=== PATIENT | female | born 1945 | race Caucasian/White ===

== ENCOUNTER 2017-09-29 05:40 | Day surgery (SDC) | payer MEDICARE, OTHER ==
[~2017-09-29] VITALS: Ht 152.4 cm; Wt 73.9 kg
--- NOTE | ~2017-09-29 | OR ---
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 PROCEDURE: Repair of left lumbar hernia with implantation of Prolene mesh (underlay technique). ANESTHESIA: General endotracheal; Eliseo Sandoval CRNA and local 20 mL of 0.25% Marcaine with epinephrine. INDICATION: This 72-year-old white woman is a patient of Dr. Elena, previously Dr. Schultz. In 2015, she underwent a fairly extensive evaluation for chronic diarrhea by Dr. Aftab Mtz in [employer]. Part of that evaluation included a CT scan of the abdomen showed a rather classic and typical lumbar hernia with herniation of colon and retroperitoneal fat. The patient has issues of diarrhea that are largely managed well by Questran currently. She is considered to have irritable bowel syndrome, underlying all this of the possibility of choleretic diarrhea considered probable in my opinion. She is markedly improved with Questran. Given her hernia, consideration has been made for repair. A CT scan performed in 2015, showed a rather classic Petit's hernia. I have recommended repair by open technique with implantation of Prolene mesh in the submuscular position as a most optimal way for repair of this type hernia. The risks of bleeding, infection, and recurrence were reviewed in detail. She understands and wished to proceed. FINDINGS: Rather classic Petiti's hernia was noted. Inferior border was the iliac crest, posterior border of the erector spinae, superoposterior border of the latissimus dorsi and the anterior border of the external oblique. A very distinct hernia defect was PATIENT NAME: PETER TERESA OPERATIVE REPORT DATE OF : 49 REPORT #: [id number] PHYSICIAN: ELISEO OTRRES MD PCP: CLAY ELENA MD REPORT IS CONFIDENTIAL AND NOT TO BE RELEASED WITHOUT AUTHORIZATION [facility] [address], [place] [address] Draft noted and the hernia sac was easily reduced. Implantation of Prolene mesh with at least 4 cm overlap in every area was undertaken providing optimal hernia repair. DESCRIPTION OF PROCEDURE: The patient was brought to the operating room, given a general endotracheal anesthetic. Preoperative antibiotic Ancef was given. Sequential compression device stockings were used and heparin subcutaneously administered. The positioning of the patient was in the lateral position with left side up. The break in the table was positioned optimally to allow for extension of the table providing good exposure to the left superior iliac crest. It is notable she had a previous posterior midline lumbar incision as well as a small incision over the left iliac crest likely for bone for obtaining bone graft for the lumbar operation. Sterile preparation was undertaken with chlorhexidine solution and the area was draped sterilely. A curvilinear incision was made over the area of the hernia defect cephalad to the iliac crest. Dissection was carried through the thick lumbar fat, ultimately achieving the fascial layer. With blunt dissection, the hernia sac was dissected free and the fascial confines ultimately well defined. The hernia defect was approximately the size of a silver dollar overall. The posterior border was erector spinae, the inferior border of the iliac crest. Anteriorly, the external oblique and superiorly the latissimus muscle. With meticulous care, the hernia sac was dissected free from the surrounding overlying muscular areas and allowed to replace into the retroperitoneal space. There was no incarceration of colon or other organ. The fascial clearance was at least 5 cm circumferentially. A segment of Prolene mesh was cut in a circular configuration and secured in an underlay technique with interrupted 0 Prolene sutures with Prolene pledgets. Care was taken to spread the mesh as far as possible to cover the defect widely. In particular, the mesh was placed in the inside of the iliac crest with suturing of the mesh to the periosteal layers of the iliac crest. Irrigation was undertaken and 20 mL of 0.25% Marcaine with epinephrine was injected locally. The lumbar fat was reapproximated with interrupted 2-0 Vicryl and skin closed with running subcuticular 3-0 Vicryl. Steri-Strips were applied as was a Mepilex silver sponge dressing and an OpSite. The patient was ultimately extubated and transferred to recovery room in good condition having suffered no complication. Sponge, needle, and instrument counts reported as correct x3. Eliseo Torres MD PATIENT NAME: PETER TERESA OPERATIVE REPORT DATE OF : 49 REPORT #: [id number] PHYSICIAN: ELISEO TORRES MD PCP: CLAY ELENA MD REPORT IS CONFIDENTIAL AND NOT TO BE RELEASED WITHOUT AUTHORIZATION [address] [address] Draft RODNEY/CHONG /[id number] cc: MD Angel Brooks MD James Harri, MD Copies: Isaiah SCHULTZ MD, LOUIS SAMUELS MD HARRI, JAMES MD ~ PATIENT NAME: PETER TERESA OPERATIVE REPORT DATE OF : 49 REPORT #: [id number] PHYSICIAN: ELISEO TORRES MD PCP: CLAY ELENA MD REPORT IS CONFIDENTIAL AND NOT TO BE RELEASED WITHOUT AUTHORIZATION
[~2017-09-29 05:40] MED LIST: CALTRATE 600 +1 EAC1 PO; CENTRUM SILVER1 EAC3 PO; CHOLESTYRAMINE P4 GM PO; DICYCLOMINE HCL10 MG PO; GABAPENTIN600 MG PO; LEFLUNOMIDE10 MG PO; LIPITOR40 MG PO; OMEPRAZOLE20 MG PO; PAROXETINE HCL20 MG PO; POTASSIUM CHLO20 ME2 PO; VITAMIN D34000 UNIT PO
--- NOTE | 2017-09-29 09:57 | NUR ---
09/29/17 0957 Huma Cisneros 0949 PATIENT ARRIVES TO PACU UNRESPONSIVE TO PAINFUL STIMULI, MASK AT [address].
[2017-09-29] MEDS ORDERED: IBUPROFEN600 MG PO (10:11)
[2017-09-29] MEDS ORDERED: MAPAP325 MG PO (10:12)
[2017-09-29] MEDS ORDERED: OXYCODON-ACETA1 EAC2 PO (10:12)
--- NOTE | 2017-09-29 10:54 | NUR ---
PATIENT ARRIVED BACK TO DAY SURGERY. PATIENT IS SLEEPING SOUNDLY, GIVEN KETAMINE FOR PAIN, PER ANESTHESIA. O2 SAYS ARE 94% ON ROOM AIR, VITALS ARE STABLE. LEFT LUMBAR AREA DRESSING IS INTACT WITH MEPLIX AND OPSITE WITH NO DRAINAGE NOTED. SCD'S ARE ON. LEFT HAND IV IS INTACT, PATIENT GIVEN POST OP DOSE OF ANCEF 2G.
--- NOTE | 2017-09-29 11:13 | NUR ---
PT IS FRESTING IN BED, ALERT AND SUPPORTED BY HER DAUGHTER. SHE SEEMED INFORMED AND READY-PT DID REQUEST PRAYER. WILL FOLLOW NEEDED
--- NOTE | 2017-09-29 11:37 | NUR ---
PATIENT IS RESTING COMFORTABLY IN BED, DENIES PAIN AT THIS TIME. LUMBAR LLQ DRESSING IS CDI. IV IS SALINE LOCKED. ICE CHIPS AT BEDSIDE AND PATIENT HAS COOL COMPRESS ON FORHEAD. DAUGHTER IN ROOM WITH PATIENT.
--- NOTE | 2017-09-29 12:39 | NUR ---
PATIENT UP TO VOID, HAVING SIGNIFICANT DIZZINESS AND USED THE COMMODE TO VOID 900ML. PATIENT EATING CRACKERS AND TOLERATING PO FLUIDS, HAD PO IBUPROFEN FOR 2/10 LEFT BACK PAIN AND 7/10 LEFT EYE PAIN. PATIENT REPORTS LEFT EYE IRRITATION, NOT ABLE TO VISUALIZE ANYTHING IN PATIENT'S EYE.
--- NOTE | 2017-09-29 12:54 | NUR ---
CALL TO [facility] GOMES THAT PATIENT HAS LEFT EYE IRRITATION. RECOMMEND PATCH, EYE DROPS AND POSSIBLE VISIT TO EYE DOCTOR IF CONTINUES TOMORROW.
--- NOTE | 2017-09-29 13:51 | NUR ---
PATIENT DISCHARGED TO HOME, GIVEN WHEELCHAIR RIDE TO FRONT DOOR, PLACED SELF IN CAR FOR DAUGHTER TO TRANSPORT HOME.
== END 2017-09-29 13:40 | disposition home or self-care (01) ==
LOC: DS 05:40
PROVIDERS: Surgery
PROC: 0WUF0JZ Supplement Abdominal Wall with Synthetic Substitute, Open Approach (ICD-10-PCS; principal; 2017-09-29 06:45)
DX: K45.8 Other specified abdominal hernia without obstruction or gangrene (principal); K52.9 Noninfective gastroenteritis and colitis, unspecified; K21.9 Gastro-esophageal reflux disease without esophagitis; Z88.5 Allergy status to narcotic agent; Z88.2 Allergy status to sulfonamides; Z85.3 Personal history of malignant neoplasm of breast; Z86.14 Personal history of Methicillin resistant Staphylococcus aureus infection; Z98.890 Other specified postprocedural states; Z79.899 Other long term (current) drug therapy
CPT/HCPCS: C1781; J0330; J0690; J1100; J1644; J1885; J2250; J2405; J2704; J2765; J3010; J7120

== ENCOUNTER 2018-06-23 00:22 | Emergency (ER) | payer MEDICARE, OTHER ==
[~2018-06-23] VITALS: Ht 152.4 cm; Wt 69.4 kg
--- OUTSIDE RECORDS SUMMARY | ~2018-06-23 | XMS | Encounter Summary ---
Demographics + + + | Address | [address] | | | [place] [address] | + + + | Home Phone | | + + + | Preferred Language | Unknown | + + + | Marital Status | | + + + | Cheondoism Affiliation | 1077 | + + + | Race | Unknown | + + + | Ethnic Group | Unknown | + + + Author + + + | Author | [facility] | | | and [place] | + + + | Organization | [facility] | | | and [place] | + + + | Address | Unknown | + + + | Phone | Unavailable | + + + Support + + + + + | Name | Relationship | Address | Phone | + + + + + | Angie Sellers | ECON | [address] | | | | | [place], | | | | | [place] [address] | | + + + + + | Bud Lo | ECON | [address] | | | | | [place], | | | | | [place] [address] | | + + + + + | Angie Sellers | ECON | Unknown | | + + + + + Care Team Providers + +------+ + | Care Info Print Press Operator Name | Role | Phone | + +------+ + | Tammi Elena MD | PCP | | + +------+ + Reason for Visit + + + | Reason | Comments | + + + | Medication Refill | | + + + Encounter Details +--------+--------+ + + + | Date | Type | Department | Care Team | Description | +--------+--------+ + + + | 05/31/ | Refill | [facility] | Aftab Lowe MD | Medication Refill | | 2019 | | GASTROENTEROLOGY | [address], [place] | | | | | [address] [place] | [address] [place] | | | | | [address] [place], [place] | [address] | | | | | [address] | | | | | | [phone] | | | +--------+--------+ + + + Social History + +-------+ +--------+------+ | Tobacco Use | Types | Packs/Day | Years | Date | | | | | Used | | + +-------+ +--------+------+ | Never Smoker | | | | | + +-------+ +--------+------+ + +---+---+---+ | Smokeless Tobacco: | | | | | Never Used | | | | + +---+---+---+ + + +---------+ + | Alcohol Use | Drinks/We | oz/Week | Comments | | | ek | | | + + +---------+ + | Yes | 0 | 0.0 | Socially 1-2 drinks a month or less | | | Standard | | | | | drinks or | | | | | | | | | | equivalen | | | | | t | | | + + +---------+ + + + + | Sex Assigned at | Date Recorded | | | | + + + | Not on file | | + + + + + + + | Job Start Date | Occupation | Industry | + + + + | Not on file | Not on file | Not on file | + + + + + + + + | Travel History | Travel Start | Travel End | + + + + + + | No recent travel history available. | + + documented as of this encounter Plan of Treatment +--------+ + + + + | Date | Type | Specialty | Care Team | Description | +--------+ + + + + | 06/12/ | Appointment | Oncology | Aftab Chun | | | 2019 | | | MD Bill [address] | | | | | | [address] | | | | | | [place] [address] | | | | | | [phone] | | | | | | | | +--------+ + + + + documented as of this encounter Visit Diagnoses Not on filedocumented in this encounter"
--- OUTSIDE RECORDS SUMMARY | ~2018-06-23 | XMS | Clinical Summary ---
Demographics + + + | Address | [address] | | | [place] [address] | + + + | Home Phone | | + + + | Preferred Language | Unknown | + + + | Marital Status | | + + + | Latter Day Affiliation | 1077 | + + + | Race | Unknown | + + + | Ethnic Group | Unknown | + + + Author + + + | Author | [facility] | | | and [place] | + + + | Organization | [facility] | | | and [place] [...] [place], | | | | | [place] [address] | | + + + + + | Bud Lo | ECON | [address] | | | | | [place], | | | | | [place] [address] | | + + + + + | Angie Sellers | ECON | Unknown | | + + + + + Care Team Providers + +------+ + | Care Automation Qa Tester Name | Role | Phone | + +------+ + | Tammi Elena MD | PP | | + +------+ + Allergies + + + + + + | Active Allergy | Reactions | Severity | Noted | Comments | | | | | Date | | + + + + + + | Bee Venom | Swelling | Medium | 08/05/19 | Local reaction | | | | | 13 | | + + + + + + | Codeine Sulfate | Hives, Rash | Low | | | + + + + + + | Morphine Sulfate | Other (See Comments) | Low | | hallucination | + + + + + + | Sulfa Antibiotics | Hives, Rash | Low | | | + + + + + + Medications + + + +---------+------+------+-------+ | Medication | Sig | Dispensed | Refills | Star | End | Statu | | | | | | t | Date | s | | | | | | Date | | | + + + +---------+------+------+-------+ | potassium chloride | Take 20 mEq by mouth | | 0 | 09/1 | | Activ | | (KLOR-CON) 20 MEQ | 2 times daily. | | | 3/20 | | e | | packet | | | | 12 | | | + + + +---------+------+------+-------+ | cholestyramine | Take 1 packet by | 240 g | 12 | 07/0 | | Activ | | (QUESTRAN) 4 GM/DOSE | mouth 2 times daily. | | | 04/07 | | e | | powder | | | | 13 | | | + + + +---------+------+------+-------+ | atorvaSTATin | Take 40 mg by mouth | | 0 | 10/17 | | Activ | | (LIPITOR) 40 mg | nightly. | | | 05/05 | | e | | tablet | | | | 12 | | | + + + +---------+------+------+-------+ | Multiple | Take 1 tablet by | | 0 | 10/17 | | Activ | | Vitamins-Minerals | mouth Daily. | | | 05/05 | | e | | (CENTRUM SILVER) | | | | 12 | | | | TABS | | | | | | | + + + +---------+------+------+-------+ | gabapentin | Take 500 mg by mouth | | 0 | | | Activ | | (NEURONTIN) 100 mg | nightly. Pt states | | | | | e | | capsule | she takes 500mg | | | | | | | | daily po | | | | | | + + + +---------+------+------+-------+ | omeprazole | Take 1 capsule by | 90 | 2 | 04/1 | | Activ | | (PRILOSEC) 20 mg | mouth every morning | capsule | | 6/20 | | e | | capsule | (before breakfast). | | | 15 | | | + + + +---------+------+------+-------+ | calcium-vitamin D | Take 600 mg by mouth | | 0 | | | Activ | | 600-400 MG-UNIT TABS | Daily. | | | | | e | + + + +---------+------+------+-------+ | PARoxetine (PAXIL) | Take 20 mg by mouth | | 0 | | | Activ | | 40 MG tablet | every morning. | | | | | e | + + + +---------+------+------+-------+ | Cholecalciferol | Take 4,000 Units by | | 0 | | | Activ | | (VITAMIN D-3) 4000 | mouth Daily. | | | | | e | | units CAPS | | | | | | | + + + +---------+------+------+-------+ | famotidine | Take 40 mg by mouth | | 0 | | | Activ | | (PEPCID) 40 MG | Daily. | | | | | e | | tablet | | | | | | | + + + +---------+------+------+-------+ | dicyclomine | take 1 capsule by | 60 | 1 | 04/1 | | Activ | | (BENTYL) 10 mg | mouth four times a | capsule | | 8/20 | | e | | capsule | day if needed for | | | 19 | | | | | abdominal pain | | | | | | | | cramping and | | | | | | | | diarrhea | | | | | | + + + +---------+------+------+-------+ | traZODone | Take 1 tablet by | | 0 | 04/0 | | Activ | | (DESYREL) 50 mg | mouth nightly as | | | 8/20 | | e | | tablet | needed. | | | 19 | | | + + + +---------+------+------+-------+ | hydroxychloroquine | Take 400 mg by mouth | | 0 | | 04/2 | Disco | | (PLAQUENIL) 200 mg | Daily. Take po | | | | 6/20 | ntinu | | tablet | twice a day | | | | 19 | ed | + + + +---------+------+------+-------+ | leflunomide | Take 10 mg by mouth | | 0 | | 04/2 | Disco | | (ARAVA) 10 mg tablet | Daily. | | | | 6/20 | ntinu | | | | | | | 19 | ed | + + + +---------+------+------+-------+ | dicyclomine | take 1 capsule by | 60 | 1 | 11/0 | 04/1 | Disco | | (BENTYL) 10 mg | mouth four times a | capsule | | 7/20 | 5/20 | ntinu | | capsule | day if needed for | | | 18 | 19 | ed | | | ABDOMINAL PAIN | | | | | | | | CRAMPING AND | | | | | | | | DIARRHEA | | | | | | + + + +---------+------+------+-------+ Active Problems + + + | Problem | Noted Date | + + + | High risk medication use | 12/09/2016 | + + + + + | Overview: Last Assessment & Plan: Update labs today and | | continue to monitor closely while on DMARD and/or biologic | | medication. Counseled regarding medication compliance as well as | | potential toxicities with medications such as cytopenias, liver | | abnormalities and risks for infection, and the need for routine | | blood work monitoring. | + + + + + | Malignant neoplasm of female breast | 12/28/2015 | + + + | Other ferry terminal agent (current) drug therapy | 06/19/2015 | + + + | Osteoarthritis of hand | 06/19/2015 | + + + | Change in bowel habit | 06/05/2015 | + + + | GERD (gastroesophageal reflux disease) | 05/24/2015 | + + + | Fecal incontinence | 05/24/2015 | + + + | Rheumatoid arthritis involving multiple joints | 12/18/2014 | + + + | Lumbar spondylosis | | + + + + + | Overview: PLRU [id number] Decision | + + + +---+ | DIARRHEA | | + +---+ | SCOLIOSIS, LUMBAR SPINE | | + +---+ Encounters +--------+ + + + + | Date | Type | Specialty | Care Team | Description | +--------+ + + + + | 06/11/ | Hospital | | Aftab Chun | Malignant neoplasm | | 2019 | Encounter | | MD Bill | of female breast, | | | | | | unspecified estrogen | | | | | | receptor status, | | | | | | unspecified | | | | | | laterality, | | | | | | unspecified site of | | | | | | breast (HCC) | | | | | | (Primary Dx); Lumbar | | | | | | spondylosis; | | | | | | Rheumatoid arthritis | | | | | | involving multiple | | | | | | joints (HCC); Other | | | | | | ferry terminal agent (current) | | | | | | drug therapy; High | | | | | | risk medication use | +--------+ + + + + | 05/31/ | Refill | | Aftab Lowe MD | Medication Refill | | 2019 | | | | | +--------+ + + + + from Last 3 Months Family History + + +------+ + | Medical History | Relation | Name | Comments | + + +------+ + | Diabetes | Brother | | | + + +------+ + | Heart disease | Brother | | DC | + + +------+ + | Cancer | Father | | KIDNEY | + + +------+ + | Stroke | Father | | | + + +------+ + | Cancer | Mother | | LUNG | + + +------+ + | Diabetes | Mother | | | + + +------+ + | Heart disease | Mother | | | + + +------+ + + +------+ + + | Relation | Name | Status | Comments | + +------+ + + | Brother | | | | + +------+ + + | Father | | | | + +------+ + + | Mother | | | Lung cancer, CAD, Smoker, Leukemia | | | | (Age | | | | | 70) | | + +------+ + + Social History + +-------+ +--------+------+ [...] recent travel history available. | + + Last Filed Vital Signs + + + + | Vital Sign | Reading | Time Taken | + + + + | Blood Pressure | 126/71 | 06/11/2018 1117 PDT | + + + + | Pulse | 73 | 06/11/20181116 PDT | + + + + | Temperature | 36.9 C (98.4 F) | 06/11/20181116 PDT | + + + + | Respiratory Rate | 18 | 06/11/20181116 PDT | + + + + | Oxygen Saturation | 97% | 06/11/20181116 PDT | + + + + | Inhaled Oxygen | - | - | | Concentration | | | + + + + | Weight | 72.9 kg (160 lb 11.5 | 06/11/20181116 PDT | | | oz) | | + + + + | Height | 152.4 cm (5') | 05/05/2017 1610 PDT | + + + + | Body Mass Index | 31.39 | 05/05/2017 1610 PDT | + + + + Plan of Treatment +--------+ + + + + | Date | Type | Specialty | Care Team | Description | +--------+ + + + + | 06/12/ | Appointment | | Aftab Chun | | | 2019 | | | MD [facility] [address] | | | | | | [address] | | | | | | [place] [address] | | | | | | [phone] | | | | | | | | +--------+ + + + + + + + + + | Health Maintenance | Due Date | Last Done | Comments | + + + + + | Hepatitis C | | | | | Screening | 8 | | | + + + + + | Breast Cancer | | | | | Screening (Ages | 8 | | | | 50-74) | | | | + + + + + | Vaccine: Zoster (1 | | | | | of 2) | 8 | | | + + + + + | Adult Annual | | | | | Wellness Visit | 5 | | | + + + + + | Vaccine: | | 11/23/2017 | | | Pneumococcal 65+ | 8 | | | | High/Highest Risk (2 | | | | | of 2 - PPSV23) | | | | + + + + + | Vaccine: | | 07/05/2011 | | | Dtap/Tdap/Td (2 - | 2 | | | | Td) | | | | + + + + + | Colorectal Cancer | | 06/06/2015, 01/06/2008, | | | Screening | 6 | 12/29/2007 | | | (Colonoscopy) | | | | + + + + + | Vaccine: Influenza | Completed | 11/04/2017, 10/28/2016, | | | | | 10/24/2015, Additional history | | | | | exists | | + + + + + Procedures + +--------+ + + + | Procedure Name | Priori | Date/Time | Associated Diagnosis | Comments | | | ty | | | | + +--------+ + + + | COMPREHENSIVE | STAT | 06/11/2018 | Lumbar spondylosis | Results for this | | METABOLIC PANEL | | 10:26 PDT | Rheumatoid | procedure are in the | | | | | arthritis involving | results section. | | | | | multiple joints | | | | | | (HCC) Other long | | | | | | term (current) drug | | | | | | therapy Malignant | | | | | | neoplasm of female | | | | | | breast, unspecified | | | | | | estrogen receptor | | | | | | status, unspecified | | | | | | laterality, | | | | | | unspecified site of | | | | | | breast (HCC) High | | | | | | risk medication use | | + +--------+ + + + | CBC WITH | STAT | 06/11/2018 | Lumbar spondylosis | Results for this | | DIFFERENTIAL | | 10:26 PDT | Rheumatoid | procedure are in the | | | | | arthritis involving | results section. | | | | | multiple joints | | | | | | (HCC) Other long | | | | | | term (current) drug | | | | | | therapy Malignant | | | | | | neoplasm of female | | | | | | breast, unspecified | | | | | | estrogen receptor | | | | | | status, unspecified | | | | | | laterality, | | | | | | unspecified site of | | | | | | breast (HCC) High | | | | | | risk medication use | | + +--------+ + + + from Last 3 Months Results CBC with Differential (06/11/2018 10:26 PDT) + +-------+ + + + | Component | Value | Ref Range | Performed | Pathologist | | | | | At | Signature | + +-------+ + + + | WBC | 5.8 | 4.0 - 11.0 K/uL | [facility] | | | | | | [facility] | | | | | | [facility] | | | | | [facility] - | | | | | | LABORATORY | | + +-------+ + + + | RBC | 4.92 | 3.70 - 5.20 | [facility] | | | | | M/uL | [facility] | | | | | | [facility] | | | | | | [facility] - | | | | | | LABORATORY | | + +-------+ + + + | Hemoglobin | 15.0 | 11.5 - 16.0 | [facility] | | | | | g/dL | [facility] | | | | | | [facility] | | | | | | [facility] - | | | | | | LABORATORY | | + +-------+ + + + | Hematocrit | 43.6 | 34.0 - 47.0 % | [facility] | | | | | | [facility] | | | | | | [facility] | | | | | | [facility] - | | | | | | LAB[facility]ATORY | | + +-------+ + + + | MCV | 88.6 | 83.0 - 101.0 fL | [facility] | | | | | | [facility] | | [facility] | | | [facility] | | | | | [facility] - | | | | | | LAB[facility]ATORY | | + +-------+ + + + | MCH | 30.5 | 28.0 - 35.0 pg | [facility] | | | | | | [facility] | | | | | | [facility] | | | | | | [facility] - | | | | | | LAB[facility]ATORY | | + +-------+ + + + | MCHC | 34.4 | 32.0 - 36.0 | [facility] | | | | | g/dL | [facility] | | | | | | [facility] | | | | | | [facility] - | | | | | | LABORATORY | | + +-------+ + + + | RDW-CV | 13.2 | <15.0 % | [facility] | | | | | | [facility] | | | | | | [facility] | | | | | | [facility] - | | | | | | LAB[facility]ATORY | | + +-------+ + + + | RDW-SD | 42.5 | 35.1 - 46.3 fL | [facility] | | | | | | [facility] | | | | | | [facility] | | | | | | [facility] - | | | | | | LAB[facility]ATORY | | + +-------+ + + + | Platelet | 238 | 140 - 440 K/uL | [facility] | | | Count | | | [facility] | | | | | | [facility] | | | | | | [facility] - | | | | | | LAB[facility]ATORY | | + +-------+ + + + | MPV | 9.6 | 6.5 - 12.4 fL | [facility] | | | | | | [facility] | | | | | | [facility] | | | | | [facility] - | | | | | | LAB[facility]ATORY | | + +-------+ + + + | % | 60.0 | 45.0 - 82.0 % | [facility] | | | Neutrophils | | | [facility] | | | | | | [facility] | | | | | | [facility] - | | | | | | LABORATORY | | + +-------+ + + + | % | 26.1 | 20.0 - 45.0 % | [facility] | | | Lymphocytes | | | [facility] | | | | | | [facility] | | | | | | [facility] - | | | | | | LAB[facility]ATORY | | + +-------+ + + + | % Monocytes | 8.7 | 4.0 - 12.0 % | [facility] | | | | | | [facility] | | | | | | [facility] | | | | | | [facility] - | | | | | | LAB[facility]ATORY | | + +-------+ + + + | % | 4.0 | 0.0 - 5.0 % | [facility] | | | Eosinophils | | | [facility] | | | | | | [facility] | | | | | | [facility] - | | | | | | LABORATORY | | + +-------+ + + + | % Basophils | 1.0 | 0.0 - 1.0 % | [facility] | | | | | | [facility] | | | | | | [facility] | | | | | | [facility] - | | | | | | LAB[facility]ATORY | | + +-------+ + + + | % Immature | 0.2 | 0.0 - 0.4 % | [facility] | | | Granulocyte | | | [facility] | | | s | | | [facility]ICAL | | | | | | CENTER - | | | | | | LABORATORY | | + +-------+ + + + | Absolute | 3.47 | 1.80 - 8.50 | [facility] | | | Neutrophils | | K/uL | [facility] | | | | | | [facility] | | | | | | [facility] - | | | | | | LAB[facility]ATORY | | + +-------+ + + + | Absolute | 1.51 | 0.60 - 3.20 | [facility] | | | Lymphocytes | | K/uL | [facility] | | | | | | [facility] | | | | | | [facility] - | | | | | | LAB[facility]ATORY | | + +-------+ + + + | Absolute | 0.50 | 0.00 - 1.00 | [facility] | | | Monocytes | | K/uL | [facility] | | | | | | [facility] | | | | | | [facility] - | | | | | | LAB[facility]ATORY | | + +-------+ + + + | Absolute | 0.23 | 0.00 - 0.40 | [facility] | | | Eosinophils | | K/uL | [facility] | | | | | | [facility] | | | | | | [facility] - | | | | | | LABORATORY | | + +-------+ + + + | Absolute | 0.06 | 0.00 - 0.10 | [facility] | | | Basophils | | K/uL | [facility] | | | | | | [facility] | | | | | | [facility] - | | | | | | LABORATORY | | + +-------+ + + + | Absolute | 0.01 | 0.00 - 0.03 | [facility] | | | Immature | | K/uL | [facility] | | | Granulocyte | | | MEDICAL | | | s | | | CENTER - | | | | | | LABORATORY | | + +-------+ + + + | % nRBC | 0 | 0 - 2 per 100 | [facility] | | | | | WBCs | [facility] | | | | | | [facility] | | | | | | [facility] - | | | | | | LABORATORY | | + +-------+ + + + | Absolute | 0.00 | 0.00 - 0.01 | [facility] | | | nRBC | | K/uL | [facility] | | | | | | [facility] | | | | | | [facility] - | | | | | | LABORATORY | | + +-------+ + + + + + | Specimen | + + | Blood | + + + + + + + | Performing | Address | City/State/Zipcode | Phone Number | | Organization | | | | + + + + + | [facility] | [address] | [place] | [phone] | | [facility] | | [address] | | | - LABORATORY | | | | + + + + + Comprehensive Metabolic Panel (06/11/2018 10:26 PDT) + + + + + + | Component | Value | Ref Range | Performed | Pathologist | | | | | At | Signature | + + + + + + | Na | 141 | 136 - 145 | [facility] | | | | | mmol/L | [facility] | | | | | | [facility] | | | | | | [facility] - | | | | | | LABORATORY | | + + + + + + | K | 3.8 | 3.4 - 5.1 | [facility] | | | | | mmol/L | [facility] | | | | | | [facility] | | | | | | C[facility] - | | | | | | LABORATORY | | + + + + + + | Cl | 108 (H) | 98 - 107 mmol/L | [facility] | | | | | | [facility] | | | | | | [facility] | | | | | | CENTER - | | | | | | LABORATORY | | + + + + + + | CO2 | 27 | 20 - 31 mmol/L | [facility] | | | | | | [facility] | | | | | | [facility] | | | | | | [facility] - | | | | | | LABORATORY | | + + + + + + | Anion Gap | 6 | 3 - 16 mmol/L | [facility] | | | | | | [facility] | | | | | | [facility] | | | | | | CENTER - | | | | | | LABORATORY | | + + + + + + | Glucose | 92 | 60 - 106 mg/dL | [facility] | | | | | | [facility] | | | | | | [facility] | | | | | | [facility] - | | | | | | LABORATORY | | + + + + + + | BUN | 16 | 9 - 23 mg/dL | [facility] | | | | | | [facility] | | | | | | [facility] | | | | | | C[facility] - | | | | | | LABORATORY | | + + + + + + | Creatinine | 0.79 | 0.55 - 1.02 | [facility] | | | | | mg/dL | [facility] | | | | | | MEDICAL | | | | | | CENTER - | | | | | | LABORATORY | | + + + + + + | eGFR if not | >60Comment: GLOMERULAR | >=60 | [facility] | | | | FILTRATION | mL/min/1.73m2 | [facility] | | | HONDURAN | RATE,ESTIMATED mL/min | | MEDICAL | | | | /1.83v1Mlmv than 60 | | CENTER - | | | | Chronic kidney | | LABORATORY | | | | disease,if found over a | | | | | | 3-month period.Less than | | | | | | 15 Kidney | | | | | | failureFor | | | | | | Americans,multiply the | | | | | | calculated GFR by 1.21. | | | | | | | | | | + + + + + + | Ca | 9.8 | 8.7 - 10.4 | [facility] | | | | | mg/dL | [facility] | | | | | | MEDICAL | | | | | | CENTER - | | | | | | LABORATORY | | + + + + + + | Albumin | 4.6 | 3.2 - 4.8 g/dL | [facility] | | | | | | [facility] | | | | | | [facility] | | | | | | CENTER - | | | | | | LABORATORY | | + + + + + + | Bilirubin | 0.8 | 0.3 - 1.2 mg/dL | [facility] | | | Total | | | [facility] | | | | | | MEDICAL | | | | | | CENTER - | | | | | | LABORATORY | | + + + + + + | Total | 6.5 | 5.7 - 8.2 g/dL | [facility] | | | Protein | | | [facility] | | | | | | MEDICAL | | | | | | CENTER - | | | | | | LABORATORY | | + + + + + + | AST | 19 | 0 - 34 U/L | [facility] | | | | | | [facility] | | [facility] | | | MED[facility] | | | | | | CENTER - | | | | | | LABORATORY | | + + + + + + | ALT | 12 | 10 - 49 U/L | [facility] | | | | | | [facility] | | | | | | MED[facility] | | | | | | CENTER - | | | | | | LABORATORY | | + + + + + + | Alkaline | 148 (H) | 46 - 116 U/L | [facility] | | | Phosphatase | | | [facility] | | | | | | MEDICAL | | | | | | CENTER - | | | | | | LABORATORY | | + + + + + + | Globulin | 1.9 (L) | 2.1 - 3.8 g/dL | [facility] | | | | | | [facility] | | | | | | MEDICAL | | | | | | CENTER - | | | | | | LABORATORY | | + + + + + + | Albumin/Tea | 2.4 (H) | 0.8 - 1.9 | [facility] | | | bulin Ratio | | | [facility] | | | | | | MEDICAL | | | | | | CENTER - | | | | | | LABORATORY | | + + + + + + | BUN/Creatin | 20.3 | | [facility] | | | ine Ratio | | | [facility] | | | | | | MEDICAL | | | | | | CENTER - | | | | | | LABORATORY | | + + + + + + + + | Specimen | + + | Blood | + + + + + + + | Performing | Address | City/State/Zipcode | Phone Number | | Organization | | | | + + + + + | [facility] | [address] | [place] | [phone] | | [facility] | | [address] | | | - LABORATORY | | | | + + + + + from Last 3 Months Insurance + +--------+ +--------+ +---------+--------+ | Payer | Benefi | Subscriber | Effect | Phone | Address | Type | | | t Plan | ID | lashanda | | | | | | / | | Dates | | | | | | Group | | | | | | + +--------+ +--------+ +---------+--------+ | MEDICARE | MEDICA | [id number] | 02/16/19 | [phone] | | Medica | | | RE | | 13-Pre | 5 | | re | | | PART A | | sent | | | | | | AND B | | | | | | + +--------+ +--------+ +---------+--------+ | HUMANA | HU[employer]NA | [id number] | 02/16/19 | [phone] | | Indemn | | | MDCR | | 13-Pre | 4 | | ity | | | SUPPL | | sent | | | | + +--------+ +--------+ +---------+--------+ + +--------+ +--------+ + + | Guarantor Name | Accoun | Relation to | Date | Phone | Billing Address | | | t Type | Patient | of | | | | | | | | | | + +--------+ +--------+ + + | Aubrie Lo | Person | Self | [birth year] | [address] | | | al/Fam | | 1946 | [phone] | [place] [id number] | | | derick | | | 4 (Home) | | + +--------+ +--------+ + + Advance Directives Patient has advance care planning documents on file. For more information, please contact:[facility] [place] [address]"
--- OUTSIDE RECORDS SUMMARY | ~2018-06-23 | XMS | Clinical Summary ---
Demographics + + + | Address | [address] | | | [place] [address] | + + + | Home Phone | | + + + | Preferred Language | Unknown | + + + | Marital Status | | + + + | Scientology Affiliation | Unknown | + + + | Race | Unknown | + + + | Ethnic Group | Unknown | + + + Author + + + | Author | [facility] | + + + | Organization | [facility] | + + + | Address | Unknown | + + + | Phone | Unavailable | + + + Support + + +---------+ + | Name | Relationship | Address | Phone | + + +---------+ + | Angie Sellers | ECON | Unknown | | + + +---------+ + Care Team Providers + +------+ + | Care Coach Name | Role | Phone | + +------+ + | Tammi Elena MD | PP | | + +------+ + Allergies + + + + + + | Active Allergy | Reactions | Severity | Noted | Comments | | | | | Date | | + + + + + + | Codeine | Itching | Medium | 12/19/19 | | | | | | 15 | | + + + + + + | Morphine | Other (See Comments) | Medium | 08/13/19 | [facility] | | | | | 19 | talking to her | + + + + + + | Sulfa Antibiotics | Hives | High | 12/19/19 | | | | | | 15 | | + + + + + + Current Medications + + +--------+---------+------+------+-------+ | Prescription | Sig. | Disp. | Refills | Star | End | Statu | | | | | | t | Date | s | | | | | | Date | | | + + +--------+---------+------+------+-------+ | Multiple | Take 1 tablet by | | | | | Activ | | Vitamins-Minerals | mouth daily. | | | | | e | | (MULTIVITAMIN WITH | | | | | | | | MINERALS) tablet | | | | | | | + + +--------+---------+------+------+-------+ | Nutritional | Take by mouth. | | | | | Activ | | Supplements (VITAMIN | | | | | | e | | D MAINTENANCE PO) | | | | | | | + + +--------+---------+------+------+-------+ | omeprazole | Take 20 mg by mouth | | | | | Activ | | (PRILOSEC) 20 MG | every morning before | | | | | e | | capsule | breakfast. | | | | | | + + +--------+---------+------+------+-------+ | PARoxetine (PAXIL) | Take 40 mg by mouth | | | 10/17 | | Activ | | 40 MG tablet | daily. | | | 10/05 | | e | | | | | | 15 | | | + + +--------+---------+------+------+-------+ | vitamin D2, | Take 50,000 Units by | | | | | Activ | | ergocalciferol, | mouth once a week. | | | | | e | | 12596 UNITS capsule | | | | | | | + + +--------+---------+------+------+-------+ | Calcium Carbonate | Take by mouth. | | | | | Activ | | (CALTRATE 600 PO) | | | | | | e | + + +--------+---------+------+------+-------+ | atorvastatin | | | | 05/0 | | Activ | | (LIPITOR) 40 MG | | | | 9/20 | | e | | tablet | | | | 17 | | | + + +--------+---------+------+------+-------+ | gabapentin | | | | 05/1 | | Activ | | (NEURONTIN) 100 MG | | | | 1/20 | | e | | capsule | | | | 17 | | | + + +--------+---------+------+------+-------+ | cholestyramine | | | | 01/2 | | Activ | | (QUESTRAN) 4 g | | | | 9/20 | | e | | packet | | | | 18 | | | + + +--------+---------+------+------+-------+ | leflunomide | Take 1 tablet by | 45 | 0 | 09/0 | | Activ | | (ARAVA) 10 MG | mouth every other | tablet | | / | | e | | tabletIndications: | day. | | | 18 | | | | Rheumatoid arthritis | | | | | | | | of multiple sites | | | | | | | | with negative | | | | | | | | rheumatoid factor | | | | | | | | (HCC), High risk | | | | | | | | medication use | | | | | | | + + +--------+---------+------+------+-------+ | hydroxychloroquine | TAKE 1 TABLET EVERY | 90 | 0 | 11/2 | | Activ | | (PLAQUENIL) 200 MG | DAY | tablet | | 10/05 | | e | | tablet | | | | 18 | | | + + +--------+---------+------+------+-------+ Active Problems + + + | Problem | Noted Date | + + + | Lumbar spondylosis | 10/23/2017 | + + + + + | Overview: Overview: | | ERICKA [id number] Decision | + + + + + | Lumbar spine scoliosis | 10/23/2017 | + + + | Trochanteric bursitis of left hip | 10/23/2017 | + + + + + | Last Assessment & Plan: Active discussed conservative | | treatment including stretching and strengthening. Educationally | | information provided. | + + + + + | Chronic diarrhea | 09/29/2017 | + + + | Status post lumbar spine operation | 09/29/2017 | + + + | Lumbar hernia | 09/29/2017 | + + + | High risk medication use | 12/09/2016 | + + + + + | Last Assessment & Plan: Basic labs Monitored (CBC,CMP and | | ESR): OrderedLabs routinely ordered due to high risk medication | | use- Monitored for cytopenias, liver toxicity, renal dysfunction | | and disease activity. Eye exam satisfactory will call for recent | | examThe major posible side effect of Plaquenil is retinal | | toxicity, which is very rare at the dose we use (which is less | | than 5 mg/kg per day). This side effect happens 1 in 5000 usually | | after 5 years of use. To detect this possibility they will need | | to be seen by an supervisor treating and pumping at least once a year. | + + + + + | Malignant neoplasm of female breast (HCC) | 12/28/2015 | + + + + + | Last Assessment & Plan: Diagnosed in 1999 | + + + + + | Primary osteoarthritis of both hands | 06/19/2015 | + + + + + | Last Assessment & Plan: Patient is taking OTC analgesics PRN | | for pain. Discussed the utility of omega fatty acid and | | glucosamine/chondroitin supplements, weight loss and exercise. | + + + + + | GERD (gastroesophageal reflux disease) | 05/24/2015 | + + + | Rheumatoid arthritis of multiple sites with negative rheumatoid | 12/18/2014 | | factor (HCC) | | + + + + + | Last Assessment & Plan: Responding well to current treatment | | plan. No change in treatment plan except discontinue Arava as | | patient rarely takes it as it is and is doing well. Patient | | understands that treatment is intermediate teacher and if patient fails to | | continue regimen , the disease has propensity to flare. | + + Resolved Problems + + + + | Problem | Noted | Resolved | | | Date | Date | + + + + | Encounter for long-term (current) use of other high-risk | 06/19/19 | | | medications | 16 | 7 | + + + + Family History + + +------+ + | Medical History | Relation | Name | Comments | + + +------+ + | Heart disease | Brother | | | + + +------+ + + +------+--------+ + | Relation | Name | Status | Comments | + +------+--------+ + | Brother | | | | + +------+--------+ + Social History + +-------+ +--------+------+ | [...] + + +---------+ + | Yes | | | occ | + + +---------+ + + + + | Sex Assigned at | Date Recorded | | | | + + + | Not on file | | + + + Last Filed Vital Signs + + + + | Vital Sign | Reading | Time Taken | + + + + | Blood Pressure | 129/73 | 02/26/2018 12:25 PM PST | + + + + | Pulse | 83 | 02/26/2018 12:25 PM PST | + + + + | Temperature | 36.2 C (97.1 F) | 02/26/2018 12:25 PM PST | + + + + | Respiratory Rate | - | - | + + + + | Oxygen Saturation | - | - | + + + + | Inhaled Oxygen | - | - | | Concentration | | | + + + + | Weight | 72 kg (158 lb 12.8 | 02/26/2018 12:25 PM PST | | | oz) | | + + + + | Height | 152.4 cm (5') | 10/23/2017 12:35 PM PDT | + + + + | Body Mass Index | 31.01 | 02/26/2018 12:25 PM PST | + + + + Plan of Treatment +--------+---------+ + + + | Date | Type | Specialty | Care Team | Description | +--------+---------+ + + + | 08/26/ | Office | | Eusebia Timmons, | | | 2018 | Visit | | [address] | | | | | | [facility] | | | | | | [place] [address] | | | | | | [phone] | | | | | | | | +--------+---------+ + + + + + + + + | Health Maintenance | Due Date | Last Done | Comments | + + + + + | Vaccine: | | | | | Dtap/Tdap/Td (1 - | 7 | | | | Tdap) | | | | + + + + + | Breast Cancer | | | | | Screening | 8 | | | | (Mammogram) | | | | + + + + + | Colon Cancer | | | | | Screening | 8 | | | | (Colonoscopy) | | | | + + + + + | Vaccine: Zoster (1 | | | | | of 2) | 8 | | | + + + + + | DEXA SCAN SCREENING | | | | | | 3 | | | + + + + + | Vaccine: | | | | | Pneumococcal 65+ | 3 | | | | High/Highest Risk (1 | | | | | of 2 - PCV13) | | | | + + + + + | Vaccine: Influenza | | | | | (Season Ended) | 9 | | | + + + + + Results Not on filefrom Last 3 Months Insurance + +--------+ +------+-------+ + | Payer | Benefi | Subscriber | Type | Phone | Address | | | t Plan | ID | | | | | | / | | | | | | | Group | | | | | + +--------+ +------+-------+ + | MEDICARE | MEDICA | [id number] | | | [address] | | | RE | | | | [place] [address] | | | IP-OP | | | | | + +--------+ +------+-------+ + | COMMERCIAL OTHER | [employer] | [id number] | | | | | | | | | | | | | MEDICA | | | | | | | RE | | | | | | | SUPPLE | | | | | | | MENT | | | | | + +--------+ +------+-------+ + + +--------+ +--------+ + + | Guarantor Name | Accoun | Relation to | Date | Phone | Billing Address | | | t Type | Patient | of | | | | | | | | | | + +--------+ +--------+ + + | PETER LO | Person | Self [birth year] Work: | [address] | | | [place] | | 1945 | +- | [address] | | | [place] | | | [phone] Home: | [place] [address] | | | | | | | | | | | | | +- | | | | | | | [phone] | | + +--------+ +--------+ + +"
--- OUTSIDE RECORDS SUMMARY | ~2018-06-23 | XMS | Encounter Summary ---
Demographics + + + | Address | [address] | | | [place] [address] | + + + | Home Phone | | + + + | Preferred Language | Unknown | + + + | Marital Status | | + + + | Mandaeism Affiliation | 1077 | + + + | Race | Unknown | + + + | Ethnic Group | Unknown | + + + Author + + + | Author | [facility] | | | and [place] | + + + | Organization | [facility] | | | and [place] [...] [place], | | | | | [place] [address] | | + + + + + | Bud Lo | ECON | [address] | | | | | [place], | | | | | [place] [address] | | + + + + + | Angie Sellers | ECON | Unknown | | + + + + + Care Team Providers + +------+ + | Care Printed Circuit Board Assembler Name | Role | Phone | + +------+ + | Tammi Elena MD | PCP | | + +------+ + Reason for Referral Evaluate & Treat (Routine) + + + + + + + | Status | Reason | Specialty | Diagnoses / | Referred By | Referred To | | | | | Procedures | Contact | Contact | + + + + + + + | Pending | Specialty | Occupational | Diagnoses | | [place], | | Review | Services | Therapy / | Malignant | Lay, | Chika Rivas, | | | Required | Rehabilitatio | neoplasm of | Aftab | OT | | | | n | female | MD Bill | | | | | | breast, | [address] | | | | | | unspecified | [address] [place] | | | | | | estrogen | [place] | | | | | | receptor | [address] | | | | | | status, | Phone: | | | | | | unspecified | [phone] | | | | | | laterality, | Fax: | | | | | | unspecified | [phone] | | | | | | site of | | | | | | | breast (HCC) | | | | | | | Procedures | | | | | | | OT - | | | | | | | Chika | | | + + + + + + + Encounter Details +--------+ + + + + | Date | Type | Department | Care Team | Description | +--------+ + + + + | 06/11/ | Hospital | [facility] | Aftab Chun | Malignant neoplasm | | 2019 | Encounter | [facility] | MD Bill [address] | of female breast, | | | | [facility] [address] | [facility] | unspecified estrogen | | | | [facility] | [place] [address] | receptor status, | | | | [place] [address] | [phone] | unspecified | | | | [phone] | | laterality, | | | | [...] Other | | | | | | terminal superintendent (current) | | | | | | drug therapy; High | | | | | | risk medication use | +--------+ + + + + Social History + +-------+ [...] + + documented as of this encounter Last Filed Vital Signs + + + + | Vital Sign | Reading | Time Taken | + + + + | Blood Pressure | 126/71 | 06/11/20181116 PDT | + + + [...] + + + + | Height | - | - | + + + + | Body Mass Index | 31.39 | 05/05/20171609 PDT | + + + + documented in this encounter Medications at Time of Discharge + + + +---------+ + + | Medication | Sig | Dispensed | Refills | Start | End Date | | | | | | Date | | + + + +---------+ + + | atorvaSTATin | Take 40 mg by mouth | | 0 | 10/30/19 | | | (LIPITOR) 40 mg | nightly. | | | 12 | | | tablet | | | | | | + + + +---------+ + + | calcium-vitamin D | Take 600 mg by mouth | | 0 | | | | 600-400 MG-UNIT TABS | Daily. | | | | | + + + +---------+ + + | Cholecalciferol | Take 4,000 Units by | | 0 | | | | (VITAMIN D-3) 4000 | mouth Daily. | | | | | | units CAPS | | | | | | + + + +---------+ + + | cholestyramine | Take 1 packet by | 240 g | 12 | 08/18/19 | | | (QUESTRAN) 4 GM/DOSE | mouth 2 times daily. | | | 13 | | | powder | | | | | | + + + +---------+ + + | dicyclomine | take 1 capsule by | 60 | 1 | 06/04/19 | | | (BENTYL) 10 mg | mouth four times a | capsule | | 19 | | | capsule | day if needed for | | | | | | | abdominal pain | | | | | | | cramping and | | | | | | | diarrhea | | | | | + + + +---------+ + + | famotidine | Take 40 mg by mouth | | 0 | | | | (PEPCID) 40 MG | Daily. | | | | | | tablet | | | | | | + + + +---------+ + + | gabapentin | Take 500 mg by mouth | | 0 | | | | (NEURONTIN) 100 mg | nightly. Pt states | | | | | | capsule | she takes 500mg | | | | | | | daily po | | | | | + + + +---------+ + + | Multiple | Take 1 tablet by | | 0 | 10/30/19 | | | Vitamins-Minerals | mouth Daily. | | | 12 | | | (CENTRUM SILVER) | | | | | | | TABS | | | | | | + + + +---------+ + + | omeprazole | Take 1 capsule by | 90 | 2 | 06/02/19 | | | (PRILOSEC) 20 mg | mouth every morning | capsule | | 15 | | | capsule | (before breakfast). | | | | | + + + +---------+ + + | PARoxetine (PAXIL) | Take 20 mg by mouth | | 0 | | | | 40 MG tablet | every morning. | | | | | + + + +---------+ + + | potassium chloride | Take 20 mEq by mouth | | 0 | 10/30/19 | | | (KLOR-CON) 20 MEQ | 2 times daily. | | | 12 | | | packet | | | | | | + + + +---------+ + + | traZODone | Take 1 tablet by | | 0 | 05/25/19 | | | (DESYREL) 50 mg | mouth nightly as | | | 19 | | | tablet | needed. | | | | | + + + +---------+ + + documented as of this encounter Progress Notes Aftab Chun MD - 06/11/2018 1130 PDTFormatting of this note might be differen t from the original. Hem-Onc Progress Note [facility] Pt. Name/Age/: Aubrie Cordova Teresita 73 y.o. 1945 Med. Record Number: [id number] Date of admission: 06/11/2018 Assessment and plan: 1. Carcinoma of the right breast. A. Initial diagnosis in February 2000. B. Infiltrating ductal carcinoma with surrounding DCIS. C. T2 N0 M0, stage IIA. D. ER/TX positive. HER-2 not determined. E. Status post right modified radical mastectomy in February 2000. F. Status post adjuvant AC chemotherapy times four cycles. G. Status post sequential tamoxifen and anastrozole therapy for a total of eight years of p ost-surgical hormonal adjuvant therapy. 2. Post-treatment arthritis. A counseling session this morning first offering congratulations for extended remission now approaching 2 decades from time of original diagnosis. Based on today's history and physic al exam together with laboratory testing reassurance that remission likely sustained. Discussion concerning new elevations in the treatment of lymphedema and will ask our lymphe jatin specialist, Chika Foster to see patient in consultation. Subjective: The patient chart and medications were reviewed in detail and the patient was seen and exam ined. Aubrie Lo is a 73 y.o. female who returns today for long-term follow-up because of a previous history of stage II breast cancer. Patient now in the 18th year of follow-up following earlier right mastectomy with axillary lymph node dissection in the winter of 2000. Patient ultimately receiving both adjuvan t chemotherapy and then hormonal adjuvant therapy over the following decade. Untoward effec ts from that therapy included posttreatment arthritis which increasingly likely referable to degenerative disease as opposed to rheumatoid arthritis. Interim history in the time since our most recent visit includes continued symptoms of righ t arm lymphedema. Patient notices this particularly when working such as recently painting at her house. She wonders if there had been advancement's in the years since she had previo usly received treatment over a decade before. PSH: Reviewed, no changes to admission H&P. Past Medical History: Diagnosis Date Allergic rhinitis Chronic pain Colitis Depression with anxiety Diarrhea Displacement of lumbar intervertebral disc without myelopathy Dizziness Enteritis Esophageal reflux HX: breast cancer Hyperlipidemia Intervertebral lumbar disc disorder with Displacement Lumbago Lumbar spondylosis Malaise and fatigue Neuritis Osteoporosis Palpitations Primary osteoarthritis of both hands Rheumatoid arthritis of multiple sites with negative rheumatoid factor (HCC) Scoliosis of lumbar spine Sinusitis Review of Systems: Constitutional: Reports energy level has been ok. Reports hot flashes at night. Down 7 lbs from 04/2017, intentional. Denies high fevers, shaking chills, anorexia, nausea, vomiting, or night sweats. Appetite without changes. Ear, Nose, Mouth, Throat: Denies odynophagia, dysphagia, or tinnitus. Cardiovascular: Reports dyspnea with exertion at times. Denies shortness of breath, chest p ain, palpitations or orthopnea. Respiratory: Reports cough, occasional sputum production in the mornings with greenish sput um production. Denies hemoptysis. Gastrointestinal: Denies abdominal pain, constipation, diarrhea, melena, or bright red bloo d per rectum. Genitourinary: Denies hematuria or dysuria. Musculoskeletal: Reports arthritic joint pain continues. Neurologic: Denies headache, visual changes, or numbness/tingling of the extremities. Endocrine: Reports some swelling/tight feeling in right arm, thinks it may be lymphedema. D enies heat/cold intolerance. Hematologic: Denies spontaneous bruising or bleeding. Integumentary: Denies rash, wounds or other skin concerns. Pain: Denies pain. Review of systems as above otherwise negative Scheduled Medications: Continuous Infusions: PRN Meds:. Allergy: Allergies Allergen Reactions Bee Venom Swelling Local reaction Codeine Sulfate Hives and Rash Morphine Sulfate Other (See Comments) hallucination Sulfa Antibiotics Hives and Rash Current Outpatient Medications on File Prior to Encounter Medication Sig Dispense Refill atorvaSTATin (LIPITOR) 40 mg tablet Take 40 mg by mouth nightly. calcium-vitamin D 600-400 MG-UNIT TABS Take 600 mg by mouth Daily. Cholecalciferol (VITAMIN D-3) 4000 units CAPS Take 4,000 Units by mouth Daily. cholestyramine (QUESTRAN) 4 GM/DOSE powder Take 1 packet by mouth 2 times daily. (Patie nt taking differently: Take 4 g by mouth as needed.) 240 g 12 dicyclomine (BENTYL) 10 mg capsule take 1 capsule by mouth four times a day if needed f or abdominal pain cramping and diarrhea 60 capsule 1 famotidine (PEPCID) 40 MG tablet Take 40 mg by mouth Daily. gabapentin (NEURONTIN) 100 mg capsule Take 500 mg by mouth nightly. Pt states she takes 500mg daily po Multiple Vitamins-Minerals (CENTRUM SILVER) TABS Take 1 tablet by mouth Daily. omeprazole (PRILOSEC) 20 mg capsule Take 1 capsule by mouth every morning (before break fast). 90 capsule 2 PARoxetine (PAXIL) 40 MG tablet Take 20 mg by mouth every morning. potassium chloride (KLOR-CON) 20 MEQ packet Take 20 mEq by mouth 2 times daily. (Patien t taking differently: Take 40 mEq by mouth Daily.) traZODone (DESYREL) 50 mg tablet Take 1 tablet by mouth nightly as needed. 0 No current facility-administered medications on file prior to encounter. Objectives: Temp: 36.9 C (98.4 F) BP: 126/71 Pulse: 73 Resp: 18 SpO2: 97 % on Min/Max Temp past 24 hours:Temp Av.9 C (98.4 F) Min: 36.9 C (98.4 F) Max: 3 6.9 C (98.4 F) No intake or output data in the 24 hours ending 06/11/18 1130 Wt. Admission: Weight: 72.9 kg (160 lb 11.5 oz) Wt. Current: Weight: 72.9 kg (160 lb 11 .5 oz) Physical Exam: Exam: General: The patient is alert and oriented. No acute distress. HEENT: PERRL, Oral mucosa intact. Neck is supple. Cardiovascular: Regular rate and rhythm, no murmur. Respiratory: Clear to auscultation and percussion. Breast: Right mastectomy site well-healed. Adjoining right axilla without palpable enlarg ements. Left breast normal to inspection and palpation. Abdomen: Soft, nontender, no hepatospenomegaly. No palpable masses. Bowel sounds present. Genitourinary: Deferred. Extremities: Subtle increase in soft tissues in the right forearm consistent with mild lym phedema Skin: No rashes, bruising, or petechiae. Lymph: No palpable nodes in the neck, supraclavicular fossa, axilla or groin. Neurological: Cranial nerves are intact. Normal sensory and motor function, No focal defi cits noted. Muscular/Skeletal: No acute bony tenderness. Psychiatric: Normal mood and affect. Diagnostic studies: Available data and images were reviewed personally. See reports. Significant results and findings are addressed here or in the Assessment and Plan. Recent Labs Lab 06/11/18 1026 WBC 5.8 HGB 15.0 HCT 43.6 PLT 238 Recent Labs Lab 06/11/18 1026 NA 141 K 3.8 CL 108* CO2 27 BUN 16 CREA 0.79 GLU 92 CALCIUM 9.8 BILITOT 0.8 AST 19 ALT 12 ALKPHOS 148* ALBUMIN 4.6 Electronically signed by: Aftab Chun, 06/11/2018 11:30 [facility] TIME SPENT 20 MIN. > 50% AT BEDSIDE, WITH FAMILY/PATIENT IN CARE AND MANAGER CORPORATE ON UNIT AND CO ORDINATION OF CARE Portions of this chart may have been created with Personally voice recognition software. Occasi onal wrong-word or sound-alike substitutions may have occurred due to the inherent urban itations of voice recognition software. Please read the chart carefully and recognize, using context, where these substitutions have occurred. auleanna, Mary Cortez RN - 06/11/2018 1104 PDTREVIEW OF SY STEMS Constitutional: Reports energy level has been ok. Reports hot flashes at night. Down 7 lbs from 04/2017, intentional. Denies high fevers, shaking chills, anorexia, nausea, vomiting, or night sweats. Appetite without changes. Ear, Nose, Mouth, Throat: Denies odynophagia, dysphagia, or tinnitus. Cardiovascular: Reports dyspnea with exertion at times. Denies shortness of breath, chest p ain, palpitations or orthopnea. Respiratory: Reports cough, occasional sputum production in the mornings with greenish sput um production. Denies hemoptysis. Gastrointestinal: Denies abdominal pain, constipation, diarrhea, melena, or bright red bloo d per rectum. Genitourinary: Denies hematuria or dysuria. Musculoskeletal: Reports arthritic joint pain continues. Neurologic: Denies headache, visual changes, or numbness/tingling of the extremities. Endocrine: Reports some swelling/tight feeling in right arm, thinks it may be lymphedema. D enies heat/cold intolerance. Hematologic: Denies spontaneous bruising or bleeding. Integumentary: Denies rash, wounds or other skin concerns. Pain: Denies pain. Note: Here for follow up and labs. My chart: Active. d ocumented in this encounter Plan of Treatment +--------+ + + + + | Date | Type | Specialty | Care Team | Description | +--------+ + + + + | 06/12/ | Appointment | Oncology | Aftab Chun | | | 2019 | | | MD Bill [address] | | | | | | [address] | | | | | | [place] [address] | | | | | | [phone] | | | | | | | | +--------+ + + + + + +--------+ + + | Name | Priori | Associated Diagnoses | Order Schedule | | | ty | | | + +--------+ + + | AMB Referral to [facility]ational | Routin | Malignant neoplasm | Ordered: 06/11/2018 | | Therapy (Oncology ONLY) | e | of female breast, | | | | | unspecified estrogen | | | | | receptor status, | | | | | unspecified | | | | | laterality, | | | | | unspecified site of | | | | | breast (HCC) | | + +--------+ + + documented as of this encounter Procedures + +--------+ + + + | [...] | | + +--------+ + + + documented in this encounter Results Comprehensive Metabolic Panel (06/11/2018 10:26 PDT) + [...] | 0.79 | 0.55 - 1.02 | [facility] | | | | | mg/dL | [facility] | | | | | | MEDICAL | | | | | | CENTER - | | | | | | LABORATORY | | + + + + + + | eGFR if not | >60Comment: GLOMERULAR | >=60 | [facility] | | | | FILTRATION | mL/min/1.73m2 | [facility] | | | UZBEK | RATE,ESTIMATED mL/min | | MEDICAL | | | | /1.32k7Mpdk than 60 | | CENTER - | [...] | 9.8 | 8.7 - 10.4 | [facility] | | | | | mg/dL | [facility] | | | | | | [...] | + + + + + | [address] | [address] | [place] | [phone] | | [facility] | | [address] | | | - LABORATORY | | | | + + + + + CBC with Differential (06/11/2018 10:26 PDT) + +-------+ + + + | Component | Value | Ref Range | Performed | Pathologist | | | | | At | Signature | + +-------+ + + + | WBC | 5.8 | 4.0 - 11.0 K/uL | [facility] | | | | | | [facility] | | | | | | MEDICAL | | | | | | CENTER - | | | | | | LABORATORY | | + +-------+ + + + | RBC | 4.92 | 3.70 - 5.20 | [facility] | | | | | M/uL | [facility] | | | | [...] | | Lymphocytes | | K/uL | [facility] | [...] | Immature | | K/uL | [facility] | | | Granulocyte | | | MEDICAL | | | s | | | CENTER - | | | | | | LABORATORY | | + +-------+ + + + | % nRBC | 0 | 0 - 2 per 100 | [facility] | | | | | WBCs | [facility] | | | | | | MEDICAL | | | | | | CENTER - | | | | | | LABORATORY | | + +-------+ + + + | Absolute | 0.00 | 0.00 - 0.01 | [facility] | | | nRBC | | K/uL | [facility] | [...] + + | [facility] [facility] | [address] | [place] | [phone] | | [facility] | | [address] | | | - LABORATORY | | | | + + + + + documented in this encounter Visit Diagnoses + + | Diagnosis | + + | Malignant neoplasm of female breast, unspecified estrogen receptor status, unspecified | | laterality, unspecified site of breast (HCC) - Primary | + + | Lumbar spondylosis Lumbosacral spondylosis without myelopathy | + + | Rheumatoid arthritis involving multiple joints (HCC) | + + | Other terminal superintendent (current) drug therapy | + + | High risk medication use Encounter for long-term (current) use of other medications | + + documented in this encounter"
--- OUTSIDE RECORDS SUMMARY | ~2018-06-23 | XMS | Clinical Summary ---
Demographics + + + | Address | [address] | | | [place] [address] | + + + | Home Phone | | + + + | Preferred Language | Unknown | + + + | Marital Status | | + + + | Jewish Affiliation | 1077 | + + + | Race | Unknown | + + + | Ethnic Group | Unknown | + + + Author + + + | Author | [facility] | | | and [place] | + + + | Organization | [facility] | | | and [place] | [...] [place], | | | | | [place] [address] | | + + + + + | Bud Lo | ECON | [address] | | | | | [place], | | | | | [place] [address] | | + + + + + | Angie Sellers | ECON | Unknown | | + + + + + Care Team Providers + +------+ + | Care Motor Vehicle Licence Examiner Name | Role | Phone | + [...] 12/28/2015 | + + + | Other termite exterminator helper (current) drug therapy | 06/19/2015 | + [...] + + + + | Overview: PLRU [id number] Decision | + + + +---+ | [...] Other | | | | | | termite exterminator helper (current) | | | | | | [...] | Heart disease | Brother | | [place] | + + +------+ + | Cancer [...] | | | | | [place] [address] | | | | | | [phone] | | | | | | | [...] [address] | [place] | [phone] | | [facility] | | [address] | | | - LABORATORY | | [...] | 0.79 | 0.55 - 1.02 | [facility] | | | | | mg/dL | [facility] | | | | | | MEDICAL | | | | | | CENTER - | | | | | | LABORATORY | | + + + + + + | eGFR if not | >60Comment: GLOMERULAR | >=60 | [facility] | | | | FILTRATION | mL/min/1.73m2 | [facility] | | | SERBIAN | RATE,ESTIMATED mL/min | | MEDICAL | | | | /1.07u8Loay than 60 | | CENTER - | [...] | 9.8 | 8.7 - 10.4 | [facility] | | | | | mg/dL | [facility] | | | | | | [...] + | [address] | [address] | [place] | [phone] | | [facility] | | [address] | | | - LABORATORY | | [...] +--------+ +---------+--------+ | MEDICARE | MEDICA | [id number] | 02/16/19 | [phone] | | Medica | | | RE | | 13-Pre | 5 | | re | | | PART A | | sent | | | | | | AND B | | | | | | + +--------+ +--------+ +---------+--------+ | HUMANA | HUMANA | [id number] | 02/16/19 | [phone] | | Indemn [...] | 1946 | [phone] | [place] [address] | | | derick | | | 4 (Home) | | + +--------+ +--------+ + + Advance Directives Patient has advance care planning documents on file. For more information, please contact:[facility] [place] [address]"
--- OUTSIDE RECORDS SUMMARY | ~2018-06-23 | XMS | Clinical Summary ---
Demographics + + + | Address | [address] | | | [place] [address] | + + + | Home Phone | | + + + | Preferred Language | Unknown | + + + | Marital Status | | + + + | Nondenominational Affiliation | Unknown | + + + | Race | Unknown | + + + | Ethnic Group | Unknown | + + + Author + + + | Author | [facility] | + + + | Organization | [facility] | + + + | Address | Unknown | + + + | Phone | Unavailable | + + + Support + + +---------+ + | Name | Relationship | Address | Phone | + + +---------+ + | Angie Sellers | ECON | Unknown | | + + +---------+ + Care Team Providers + +------+ + | Care Supervisor Process Testing Name | Role | Phone | + [...] | | | | e | | [address] [address] capsule | | | | | [...] + | Overview: Overview: | | ERICKA [id number] Decision | + + + + + [...] | | to be seen by an cured meats supervisor at least once a year. | + [...] Patient | | understands that treatment is superintendent container terminal and if patient fails to | | [...] | 2018 | Visit | | [address] | | | | | | [facility] | | | | | | [place] [address] | | | | | | [phone] | | | | | | | [...] +------+-------+ + | MEDICARE | MEDICA | [id number] | | | [address] | | | RE | | | | [place] [address] | | | IP-OP | | | | | + +--------+ +------+-------+ + | COMMERCIAL OTHER | HUMANA | [id number] | | | | | | | [...] | | | derick | | | [phone]: | [place] [address] | | | | | | | | | | | | | +- | | | | | | | [phone] | | + +--------+ +--------+ + +"
--- OUTSIDE RECORDS SUMMARY | ~2018-06-23 | XMS | Encounter Summary ---
Demographics + + + | Address | [address] | | | [place] [address] | + + + | Home Phone | | + + + | Preferred Language | Unknown | + + + | Marital Status | | + + + | Church Affiliation | 1077 | + + + | Race | Unknown | + + + | Ethnic Group | Unknown | + + + Author + + + | Author | [facility] | | | and [place] | + + + | Organization | [facility] | | | and [place] [...] [place], | | | | | [place] [address] | | + + + + + | Bud Lo | ECON | [address] | | | | | [place], | | | | | [place] [address] | | + + + + + | Angie Sellers | ECON | Unknown | | + + + + + Care Team Providers + +------+ + | Care Bilingual Administrative Assistant Name | Role | Phone | + [...] | | | | | receptor | [address] | | | | | | status, | Phone: | | | | | | unspecified | [phone] | | | | | | laterality, | Fax: | | | | | | unspecified | [phone] | | | | | | site [...] + + | 06/11/ | Hospital | [facility] | Aftab Chun | Malignant neoplasm | | 2019 | Encounter | [facility] | MD Bill [address] | of female breast, | | | | [facility] [address] | [facility] | unspecified estrogen | | | | [facility] | [place] [address] | receptor status, | | | | [place] [address] | [phone] | unspecified | | | | [phone] | | laterality, | | | | [...] Other | | | | | | buttermaker continuous churn (current) | | | | | | [...] t from the original. Hem-Onc Progress Note [facility] Pt. Name/Age/: Aubrie Cordova Teresita 73 y.o. 1945 Med. Record Number: [id number] Date of admission: 06/11/2018 Assessment and plan: 1. Carcinoma of the right breast. A. Initial diagnosis in February 2000. B. Infiltrating ductal carcinoma with surrounding DCIS. C. T2 N0 M0, stage IIA. D. ER/HI positive. HER-2 not determined. E. Status post [...] Electronically signed by: Aftab Chun, 06/11/2018 11:[address] [facility] TIME SPENT 20 MIN. > 50% AT BEDSIDE, WITH FAMILY/PATIENT IN CARE AND NURSING STAFFING COORDINATOR ON UNIT AND CO ORDINATION OF CARE Portions of this chart may have been created with [employer] voice recognition software. Occasi onal wrong-word or [...] | | | | | | [place] [address] | | | | | | [phone] | | | | | | | [...] | | | FILTRATION | mL/min/1.73m2 | [facility] | | | CYPRIOT | RATE,ESTIMATED mL/min | | MEDICAL | | | | /1.35r3Dohu than 60 | | CENTER - | [...] | | | | | mg/dL | [facility] | | | | | | MEDICAL [...] + | [facility] [facility] | [address] | [place] | [phone] | | [facility] | | [address] | | | - LABORATORY | | [...] ST. | [address] | [place] | [phone] | | [facility] | | [address] | | | - LABORATORY | | [...] joints (HCC) | + + | Other buttermaker continuous churn (current) drug therapy | + + | High risk medication use Encounter for long-term (current) use of other medications | + + documented in this encounter"
--- OUTSIDE RECORDS SUMMARY | ~2018-06-23 | XMS | Encounter Summary ---
Demographics + + + | Address | [address] | | | [place] [address] | + + + | Home Phone | | + + + | Preferred Language | Unknown | + + + | Marital Status | | + + + | Faith Affiliation | 1077 | + + + | Race | Unknown | + + + | Ethnic Group | Unknown | + + + Author + + + | Author | [facility] | | | and [place] | + + + | Organization | [facility] | | | and [place] | [...] [place], | | | | | [place] [address] | | + + + + + | Bud Lo | ECON | [address] | | | | | [place], | | | | | [place] [address] | | + + + + + | Angie Sellers | ECON | Unknown | | + + + + + Care Team Providers + +------+ + | Care Small Business Director Name | Role | Phone | + [...] + + | 05/31/ | Refill | [facility] | Aftab Lowe MD | Medication Refill | | 2019 | | GASTROENTEROLOGY | [address], [place] | | | | | [address] [place] | [address] [place] | | | | | [address] [place], [place] | [address] | | | | | [address] | | | | | | [phone] | | | +--------+--------+ + + + [...] | | | | | [place] [address] | | | | | | [phone] | | | | | | | | +--------+ + + + + documented as of this encounter Visit Diagnoses Not on filedocumented in this encounter"
[~2018-06-23 00:22] MED LIST changes: +IBUPROFEN600 MG PO; +MAPAP325 MG PO; +OXYCODON-ACETA1 EAC2 PO
[2018-06-23] MEDS ORDERED: KEFLEX500 MG PO (01:48)
[2018-06-23] MEDS ORDERED: PYRIDIUM200 MG PO (01:48)
== END 2018-06-23 02:03 | disposition home or self-care (01) ==
LOC: ED 00:22
DX: N39.0 Urinary tract infection, site not specified (principal); Z88.2 Allergy status to sulfonamides; Z88.5 Allergy status to narcotic agent; Z79.899 Other long term (current) drug therapy
CPT/HCPCS: 81001; 87088; 99283

== ENCOUNTER 2022-03-13 12:30 | Day surgery (SDC) | payer MEDICARE, OTHER ==
[~2022-03-13] VITALS: Ht 154.9 cm; Wt 70.9 kg
[~2022-03-13 12:30] MED LIST changes: +CALTRATE 600+D1 EAC1 PO; +HYDROXYCHLOROQ200 MG PO; +KEFLEX500 MG PO; +NORTRIPTYLINE H25 MG PO; +PYRIDIUM200 MG PO
--- NOTE | 2022-03-14 10:58 | OR ---
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 Aftab Lowe, [place]). POSTOPERATIVE DIAGNOSES: 1. Small hiatal hernia and very minimal Walsh epithelium. 2. Gastric polyps. PROCEDURE: Esophagogastroduodenoscopy with biopsy. ANESTHESIA: Intravenous sedation, fentanyl 100 mcg and Versed 4 mg. INDICATIONS: This 76-year-old white woman is well known to me from the past, having undergone breast cancer treatment and other interventions. She is now a patient of Dr. Elena. She underwent upper endoscopy by Dr. 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 She has no dysphagia, hematemesis, or other worrisome symptoms. She is admitted at this time to undergo surveillance upper endoscopy, understands the risks of bleeding, infection, and perforation. FINDINGS: Very minimal Walsh's was noted. This was barely perceptible, but was present. There was a small hiatal hernia. There were some gastric polyps, likely related to PPI use, but no other findings of concern. DESCRIPTION OF PROCEDURE: The patient was brought to the endoscopy suite and placed in lateral decubitus position, given intravenous sedation to the point of slurred speech and nystagmus after undergoing topical lidocaine hypopharyngeal anesthesia. Full cardiopulmonary monitoring was maintained. A bite block was placed. An Olympus video upper endoscope passed into the hypopharynx. The vocal cords were normal. Scope was advanced to the esophagus down into the stomach without impediment. There was no stricture. The stomach was then insufflated. Minimal Electronically Signed By: ELISEO TORRES MD 03/14/22 1058 PATIENT NAME: PETER TERESA OPERATIVE REPORT DATE OF : 49 REPORT #: [id number] PHYSICIAN: ELISEO TORRES MD PCP: CLAY ELENA MD REPORT IS CONFIDENTIAL AND NOT TO BE RELEASED WITHOUT AUTHORIZATION [facility] [address] [place], [place] [address] Signed bilious fluid was noted. Rugal folds were normal. There were some antral polyps suggestive of benign fundic gland changes. The pylorus was normal. Scope was inserted into the duodenum. The duodenum was normal. Biopsies were taken to assess for celiac disease. The scope was withdrawn and biopsies taken of the antrum for both FANTASMA and pathologic testing as well as excision of a gastric polyp. Retroflexed view showed a very small hiatal hernia. Scope was withdrawn and the distal esophagus was examined. Extremely minimal Walsh epithelium was noted in conjunction with the Z-line. This area was biopsied, the scope was then withdrawn and the midesophagus biopsied, though it appeared clinically normal. There appeared to be one submucosal pain, which in other circumstances might be described as "Walsh," but in this case unlikely. The scope was further withdrawn. There were no other findings of concern. The vocal cords were normal. The scope was removed, and the patient taken to the recovery room in good condition. CONCLUDING DIAGNOSIS: Minimal Walsh's and small hiatal hernia. PLAN: Recommend continued use of omeprazole and repeat colonoscopy rather upper endoscopy in 5 years. She should have the study sooner if she should develop symptoms particularly of dysphagia. She will return to the ongoing care of Dr. Elena. MD RODNEY Watson/CHONG /[id number] cc: Dr. Elena Copies: ~ Electronically Signed By: ELISEO TORRES MD 03/14/22 1058 PATIENT NAME: PETER TERESA OPERATIVE REPORT DATE OF : 49 REPORT #: [id number] PHYSICIAN: ELISEO OTRRES MD PCP: CLAY ELENA MD REPORT IS CONFIDENTIAL AND NOT TO BE RELEASED WITHOUT AUTHORIZATION
--- NOTE | 2022-03-17 15:57 | PATH ---
[facility] [address] [facility] [place], [place] [address] Signed SPECIMEN(S): A DUODENAL BIOPSY SPECIMEN(S): B ANTRUM/PYLORUS BIOPSY SPECIMEN(S): C STOMACH POLYP SPECIMEN(S): D LOWER ESOPHAGEAL BIOPSY SPECIMEN(S): E MIDDLE ESOPHAGEAL BIOPSY SPECIMEN SOURCE: A. DUODENAL BIOPSY B. ANTRUM/PYLORUS BIOPSY C. STOMACH POLYP D. LOWER ESOPHAGEAL BIOPSY E. MIDDLE ESOPHAGEAL BIOPSY CLINICAL HISTORY: History of GERD, Walsh's esophagus, dysphagia. Post: Small hiatal hernia, minimal Walsh's. FINAL PATHOLOGIC DIAGNOSIS: A. Duodenal biopsy: - Benign duodenal mucosa, negative for specific diagnostic abnormality. B. Antrum / pylorus biopsy - Benign gastric-type mucosa with focal slight chronic inflammation. - Negative for evidence of Helicobacter organisms on routine HE stained sections. C. Stomach polyp: - Benign fundic gland polyp (one fragment). D. Lower esophageal biopsy: - Gastroesophageal junction with specialized intestinal (goblet cell) metaplasia, negative for dysplasia. E. Middle esophageal biopsy: - Benign esophageal mucosa with reactive features, negative for increased epithelial eosinophils. JVR:[id number] MICROSCOPIC EXAMINATION: Histologic sections of all submitted blocks are examined by light microscopy. These findings, together with the gross examination, support the pathologic diagnosis. GROSS DESCRIPTION: A. The specimen, labeled and designated "Teresita, duodenum biopsy," is received PATIENT NAME: PETER TERESA PATHOLOGY DATE OF : 49 REPORT #: [id number] PHYSICIAN: [facility] PATHOLOGY PCP: CLAY RUSH MD REPORT IS CONFIDENTIAL AND NOT TO BE RELEASED WITHOUT AUTHORIZATION [facility] [address] [place], [place] [address] Signed in formalin and consists of three hutchinson soft tissue fragments, ranging from 0.3-0.3 cm. Entirely submitted in (A1). B. The specimen, labeled and designated "[place], antrum/pylorus biopsy," is received in formalin and consists of two hutchinson soft tissue fragments, ranging from 0.2-0.3 cm. Entirely submitted in (B1). C. The specimen, labeled and designated "[place], stomach polyp," is received in formalin and consists of one hutchinson soft tissue fragment, 0.5 cm. Entirely submitted in (C1). D. The specimen, labeled and designated "[place], lower esophagus biopsy," is received in formalin and consists of three hutchinson soft tissue fragments, ranging from 0.1-0.4 cm. Entirely submitted in (D1). E. The specimen, labeled and designated "[place], middle esophagus biopsies," is received in formalin and consists of three white-hutchinson tissue fragments, ranging from 0.2-0.3 cm. Entirely submitted in (E1). AC (under the direct supervision of a pathologist) The Gross Description was prepared using a voice recognition system. The report was reviewed for accuracy; however, sound-alike word errors, addition and/or deletions may occur. If there is any question about this report, please contact Client Services. PERFORMING LABORATORY: The technical component was performed by [facility], [address] [place] [id number] (CLIA# [id number]). Professional interpretation was performed by [facility], [address] [place] [address], [place] [address] (CLIA#: [id number]). Diagnostician: aFm Ceron MD Pathologist Electronically Signed 03/17/2022 Copies: ~ PATIENT NAME: PETER TERESA PATHOLOGY DATE OF : 49 REPORT #: [id number] PHYSICIAN: [facility] PATH[facility] PCP: CLAY RUSH MD REPORT IS CONFIDENTIAL AND NOT TO BE RELEASED WITHOUT AUTHORIZATION
== END 2022-03-13 15:43 | disposition home or self-care (01) ==
LOC: DS 12:30 → OPS 12:30
PROVIDERS: ATTEND Surgery
PROC: 0DB68ZX Excision of Stomach, Via Natural or Artificial Opening Endoscopic, Diagnostic (ICD-10-PCS; principal; 2022-03-13 13:30)
DX: K44.9 Diaphragmatic hernia without obstruction or gangrene (principal); K22.70 Barrett's esophagus without dysplasia; K31.7 Polyp of stomach and duodenum; K21.9 Gastro-esophageal reflux disease without esophagitis; Z85.3 Personal history of malignant neoplasm of breast; Z90.12 Acquired absence of left breast and nipple; Z90.711 Acquired absence of uterus with remaining cervical stump
CPT/HCPCS: 99153; G0500; J2250; J3010; J7121

== ENCOUNTER 2024-05-04 09:18 | Emergency (ER) | payer OTHER, MEDICARE ==
[~2024-05-04] VITALS: Ht 154.9 cm; Wt 67.0 kg
[~2024-05-04 09:18] MED LIST changes: +FLONASE ALLERG9.9 ML NAS; +STIOLTO RESPIMAT4 GM PO; +VENTOLIN HFA18 GM PO
[2024-05-04] MEDS ORDERED: OMEPRAZOLE40 MG PO (09:31)
[2024-05-04 10:11] VITALS: BP 137/62
== END 2024-05-04 10:10 | disposition home or self-care (01) ==
LOC: ED 09:18
DX: S92.354A Nondisplaced fracture of fifth metatarsal bone, right foot, initial encounter for closed fracture (principal); W01.0XXA Fall on same level from slipping, tripping and stumbling without subsequent striking against object, initial encounter; Z88.2 Allergy status to sulfonamides; Z88.5 Allergy status to narcotic agent; Z79.899 Other long term (current) drug therapy
CPT/HCPCS: 73630; 99283